=== PATIENT | male | born 1960 | race African-American/Black ===

== ENCOUNTER 2020-04-22 13:21 | Emergency (ER) | payer OTHER ==
[~2020-04-22] VITALS: Ht 188 cm; Wt 85.4 kg
[2020-04-22 13:45] VITALS: BP 122/77
--- NOTE | 2020-04-22 13:49 | NUR ---
PT VISITING [facility] FROM SEA [facility]EL. HX OF COPD AND SARCODISIS. RAN OUT OF MEDS, INCREASED SOB, CHEST TIGHTNESS, DENIES CP, NO N/V. NOT IN RESP DISTRESS. RA 95%.
[2020-04-22] MEDS ORDERED: ALBUTEROL/IPRATROPIUM 2.5MG/0.5MG, 3 ML ONE (14:23)
--- NOTE | 2020-04-22 14:27 | NUR ---
PT REFUSING LAB DRAW. PT STATES "I ONLY WANT A BREATHING TREATMENT". BREATHING TREATMENT STARTED PER OCT.
[2020-04-22] MEDS ORDERED: ALBUTEROL/IPRATROPIUM 2.5MG/0.5MG, 3 ML NPPB ONE (14:30)
--- NOTE | 2020-04-22 15:11 | NUR ---
Patient/Caregiver given discharge instructions and they have confirmed that they understand the instructions. Patient ambulatory with steady gait.
== END 2020-04-22 15:13 | disposition home or self-care (01) ==
LOC: ED 14:47
DX: R06.00 Dyspnea, unspecified (principal); R00.0 Tachycardia, unspecified; I51.7 Cardiomegaly; R50.9 Fever, unspecified; J44.9 Chronic obstructive pulmonary disease, unspecified
CPT/HCPCS: 71045; 93005; 94640; 99283